=== PATIENT | female | born 1950 ===

== ENCOUNTER 2021-12-27 07:05 | Day surgery (SDC) | payer OTHER ==
[~2021-12-27] VITALS: Ht 162.6 cm; Wt 53.5 kg
[~2021-12-27 07:05] MED LIST: CARDURA; COLACE100 MG PO; HYDROCHLOROTHIA25 MG PO; METAMUCIL1 PKT PO; METFORM PO; PERCOCET 5/3251 TAB PO; VASOTEC2.5 MG PO
[2021-12-27] MEDS ORDERED: ULTRACET PO (15:49)
== END 2021-12-27 19:25 | disposition home or self-care (01) ==
LOC: CIR.AMB 07:05
PROVIDERS: ATTEND Surgery
DX: R15.9 Full incontinence of feces (principal); K64.2 Third degree hemorrhoids; K62.89 Other specified diseases of anus and rectum; Z88.6 Allergy status to analgesic agent; I10 Essential (primary) hypertension; E11.9 Type 2 diabetes mellitus without complications
CPT/HCPCS: 64581; 95971; C1778

== ENCOUNTER 2022-01-21 05:46 | Day surgery (SDC) | payer OTHER ==
[~2022-01-21] VITALS: Ht 160 cm; Wt 53.5 kg
[~2022-01-21 05:46] MED LIST changes: +ULTRACET PO
[2022-01-21] MEDS ORDERED: ULTRACET PO (13:15)
== END 2022-01-21 15:45 | disposition home or self-care (01) ==
LOC: CIR.AMB 05:46
PROVIDERS: ATTEND Surgery
DX: R15.9 Full incontinence of feces (principal); K64.2 Third degree hemorrhoids; Z88.6 Allergy status to analgesic agent; Z20.822 Contact with and (suspected) exposure to COVID-19; I10 Essential (primary) hypertension; E11.9 Type 2 diabetes mellitus without complications
CPT/HCPCS: 64590; 95971; L8679